=== PATIENT | female | born 1980 | race Caucasian/White ===

== ENCOUNTER 2023-07-07 10:10 | Emergency (ER) | payer SELFPAY ==
[~2023-07-07] VITALS: Ht 157.5 cm; Wt 64.0 kg
[2023-07-07 10:31] VITALS: BP 132/76; RESP 18; TEMP 98; O2SAT 98
[2023-07-07] MEDS ORDERED: INSU100S22 SUBQ (11:12)
[2023-07-07 11:34] VITALS: O2SAT 98
[2023-07-07 11:59] VITALS: BP 132/76; PULSE 88; RESP 18; TEMP 98; O2SAT 98
== END 2023-07-07 11:57 | disposition home or self-care (01) ==
LOC: MED 10:10
DX: E11.9 Type 2 diabetes mellitus without complications (principal); Z76.0 Encounter for issue of repeat prescription; Z79.4 Long term (current) use of insulin
CPT/HCPCS: 81025; 82948; 99282

== ENCOUNTER 2024-01-25 08:41 | Emergency (ER) | payer MEDICAID ==
[~2024-01-25] VITALS: Ht 157.5 cm; Wt 66.2 kg
[~2024-01-25 08:41] MED LIST: INSU100S22 SUBQ
[2024-01-25 08:49] VITALS: BP 143/101; PULSE 75; RESP 18; TEMP 98; O2SAT 99
[2024-01-25 09:56] LABS: BASOPHILS % (AUTO) 0.3 % (0.0-2.0); EOSINOPHILS # (AUTO) 0.1 K/uL (0-0.4); EOSINOPHILS % (AUTO) 0.8 % (0.0-4.0); HEMATOCRIT 44.9 % (36-48); HEMOGLOBIN 15.1 g/dL (12.0-16.0); LYMPHOCYTES # (AUTO) 1.5 K/uL (2.5-16.5); LYMPHOCYTES % (AUTO) 18.6 % (20.5-51.1); MEAN CORPUSCULAR HEMOGLOBIN 32 pg (27-31); MEAN CORPUSCULAR HGB CONC 34 g/dL (33-37); MEAN CORPUSCULAR VOLUME 94.1 fL (80-94); MONOCYTES # (AUTO) 0.5 K/uL (0.8-1.0); MONOCYTES % (AUTO) 5.7 % (1.7-9.3); NEUTROPHILS % (AUTO) 74.6 % (42.2-75.2); PLATELET COUNT (AUTO) 193 K/uL (140-450); RED BLOOD CELL COUNT(AUTO) 4.77 MIL/uL (4.20-5.40); RED CELL DISTRIBUTION WIDTH 13.1 % (11.6-13.7)
[2024-01-25 09:59] LABS: CARBON DIOXIDE 24.1 mmol/L (21-32); POTASSIUM 4.1 mmol/L (3.5-5.1)
[2024-01-25 10:00] LABS: CALCIUM 8.1 mg/dL (8.5-10.1); CREATININE 0.6 mg/dL (0.6-1.3)
[2024-01-25 10:23] LABS: BILIRUBIN,URINE NEGATIVE (NEGATIVE); BLOOD, URINE 2+ (NEGATIVE); COLOR,URINE YELLOW (YELLOW); LEUKOCYTE ESTERASE ,URINE NEGATIVE (NEGATIVE); NITRITE, URINE POSITIVE (NEGATIVE); PROTEIN,URINE NEGATIVE (NEGATIVE); UGLUCOSE 3+ (NEGATIVE); UROBILINOGEN,URINE 0.2 EU/dL (0.2 - 1)
[2024-01-25 10:27] LABS: APPEARANCE,URINE SLIGHTLY HAZY (CLEAR)
[2024-01-25 10:34] LABS: BACTERIA,URINE 2+ /HPF (None Seen); MUCUS,URINE None Seen /LPF (None Seen); SQUAMOUS EPITHELIAL CELL,UR 0-3 (FEW) /LPF (0-3 (FEW)); WBC,URINE 0-5 /HPF (0-5)
[2024-01-25] MEDS: ACETAMINOPHEN EXTRA STRENGTH 500 MG TAB PO ONE (13:20)
[2024-01-25] MEDS: oxyCODONE 5 MG TAB PO STA (13:21)
[2024-01-25] MEDS ORDERED: ACET-5629 PO (14:01)
[2024-01-25 14:25] VITALS: BP 134/64; PULSE 87; RESP 18; TEMP 98.3; O2SAT 98
== END 2024-01-25 14:26 | disposition home or self-care (01) ==
LOC: MED 08:41
DX: O03.9 Complete or unspecified spontaneous abortion without complication (principal); R03.0 Elevated blood-pressure reading, without diagnosis of hypertension; O24.311 Unspecified pre-existing diabetes mellitus in pregnancy, first trimester; Z3A.01 Less than 8 weeks gestation of pregnancy; Z79.4 Long term (current) use of insulin; Z79.1 Long term (current) use of non-steroidal anti-inflammatories (NSAID)
CPT/HCPCS: 36415; 76856; 80048; 81001; 81025; 84702; 85025; 86886; 86900; 86901; 87086; 99284; Q0092